=== PATIENT | female | born 1940 | race Caucasian/White ===

== ENCOUNTER 2020-07-08 15:15 | Emergency (ER) | payer MEDICARE, OTHER | END 2020-07-08 17:44 | disposition home or self-care (01) | LOC: FER 15:15 | DX: S52.531A Colles' fracture of right radius, initial encounter for closed fracture (principal); I10 Essential (primary) hypertension; W19.XXXA Unspecified fall, initial encounter; Y92.007 Garden or yard of unspecified non-institutional (private) residence as the place of occurrence of the external cause | CPT/HCPCS: 73110 ==